=== PATIENT | male | born 1985 | race Caucasian/White ===

== ENCOUNTER 2018-01-09 10:45 | Emergency (ER) | payer MEDICAID, OTHER ==
[2018-01-09] MEDS: IBUPROFEN 600 MG TAB PO (16:35)
== END 2018-01-09 18:30 | disposition home or self-care (01) ==
LOC: FTE 10:45
DX: M54.5 Low back pain (principal); F17.210 Nicotine dependence, cigarettes, uncomplicated
CPT/HCPCS: 72100; 99283-25